=== PATIENT | male | born 1935 | race Caucasian/White ===

== ENCOUNTER 2016-11-06 18:07 | Emergency (ER) | payer MEDICARE, OTHER ==
--- NOTE | 2016-11-06 18:36 | ER Document Report ---
ED Medical Screen (RME) - General Stated Complaint: WEAKNESS Mode of Arrival: Ambulatory Information source: Patient Notes: Patient with fever that started today. Patient denies any obvious source of the fever. Patient did have an episode of confusion earlier this afternoon in which he thought he was seen watching people play football and the television was given on. hx; hypertension I have greeted and performed a rapid initial assessment of this patient. A comprehensive ED assessment and evaluation of the patient, analysis of test results and completion of the medical decision making process will be conducted by additional ED providers. TRAVEL OUTSIDE OF THE [place] IN LAST 30 DAYS: No - Related Data Allergies/Adverse Reactions: donepezil [From Aricept] Adverse Reaction (Severe, Verified 06/12/16 13:38) Bad nightmares Past Medical History - Past Medical History Cardiac Medical History: Reports: Hx Hypertension - hx of Denies: Hx Coronary Artery Disease, Hx Heart Attack Pulmonary Medical History: Denies: Hx Asthma, Hx Bronchitis, Hx COPD, Hx Pneumonia Neurological Medical History: Denies: Hx Cerebrovascular Accident, Hx Seizures GI Medical History: Denies: Hx Hepatitis, Hx Hiatal Hernia, Hx Ulcer Musculoskeltal Medical History: Reports Hx Arthritis - index finger Infectious Medical History: Denies: Hx Hepatitis Past Surgical History: Denies: Hx Open Heart Surgery, Hx Pacemaker - Immunizations Hx Diphtheria, Pertussis, Tetanus Vaccination: Yes Physical Exam - Vital signs Vitals: Temp Pulse Resp BP Pulse Ox 101.6 F H 98 20 133/90 H 95 11/06/16 18:21 11/06/16 18:21 11/06/16 18:21 11/06/16 18:21 11/06/16 18:21 - Neurological Neuro grossly intact: Yes [place] Coma Scale Eye Opening: Spontaneous Bhargav Coma Scale Verbal: Oriented [place] Coma Scale Motor: Obeys Commands [place] Coma Scale Total: 15 Course - Vital Signs Vital signs: Temp Pulse Resp BP Pulse Ox 101.6 F H 98 20 133/90 H 95 11/06/16 18:21 11/06/16 18:21 11/06/16 18:21 11/06/16 18:21 11/06/16 18:21
--- NOTE | 2016-11-06 20:09 | ER Document Report ---
ED Fever - General Chief Complaint: Fever Stated Complaint: WEAKNESS Time seen by provider: 20:00 Mode of Arrival: Ambulatory Notes: Patient is an 81-year-old male that comes emergency department for chief complaint of fever that started today, fever was 104, he took 1000 mg of Tylenol 1 hr prior to arrival. He states that when his fever started rising he had a slight headache and he felt slightly confused, denies any headache or confusion since, family members deny any confusion. Patient has not had any cough, sore throat, abdominal pain, dysuria, neck pain. Patient states he feels fine. Vision had the influenza vaccine this year. Past medical history of hypertension and "slightly weak kidneys". No smoking history and patient denies any surgeries. TRAVEL OUTSIDE OF THE [place] IN LAST 30 DAYS: No - Related Data Allergies/Adverse Reactions: donepezil [From Aricept] Adverse Reaction (Severe, Verified 11/06/16 18:38) Bad nightmares Past Medical History - General Information source: Patient - Social History Smoking Status: Never Smoker Chew tobacco use (# tins/day): No Frequency of alcohol use: None Drug Abuse: None Lives with: Family Family History: Reviewed & Not Pertinent Patient has suicidal ideation: No - Past Medical History Cardiac Medical History: Reports: Hx Hypertension - hx of Denies: Hx Coronary Artery Disease, Hx Heart Attack Pulmonary Medical History: Denies: Hx Asthma, Hx Bronchitis, Hx COPD, Hx Pneumonia Neurological Medical History: Denies: Hx Cerebrovascular Accident, Hx Seizures Renal/ Medical History: Denies: Hx Peritoneal Dialysis GI Medical History: Denies: Hx Hepatitis, Hx Hiatal Hernia, Hx Ulcer Musculoskeltal Medical History: Reports Hx Arthritis - index finger Infectious Medical History: Denies: Hx Hepatitis Surgical Hx: Negative Past Surgical History: Denies: Hx Open Heart Surgery, Hx Pacemaker - Immunizations Hx Diphtheria, Pertussis, Tetanus Vaccination: Yes Hx Pneumococcal Vaccination: 10/21/12 Review of Systems - Review of Systems Constitutional: See HPI EENT: No symptoms reported Cardiovascular: No symptoms reported Respiratory: No symptoms reported Gastrointestinal: No symptoms reported Genitourinary: No symptoms reported Male Genitourinary: No symptoms reported Musculoskeletal: No symptoms reported Skin: No symptoms reported Hematologic/Lymphatic: No symptoms reported Neurological/Psychological: No symptoms reported Physical Exam - Vital signs Vitals: Temp Pulse Resp BP Pulse Ox 101.6 F H 98 20 133/90 H 95 11/06/16 18:21 11/06/16 18:21 11/06/16 18:21 11/06/16 18:21 11/06/16 18:21 Interpretation: Normal - General General appearance: Appears well, Alert In distress: None - Patient sitting up on the bed, smiling, talkative - HEENT Head: Normocephalic, Atraumatic Eyes: Normal Conjunctiva: Normal Extraocular movements intact: Yes Eyelashes: Normal Pupils: PERRL Sinus: Normal Nasal: Normal Mouth/Lips: Normal Mucous membranes: Normal Pharynx: Normal Neck: Normal. No: Brudzinski, Meningismus - Respiratory Respiratory status: No respiratory distress. No: Tachypnea Chest status: Nontender Breath sounds: Normal. No: Decreased air movement, Nonproductive cough, Productive cough, Rales, Rhonchi, Stridor, Wheezing Chest palpation: Normal - Cardiovascular Rhythm: Regular. No: Tachycardia Heart sounds: Normal auscultation, S1 appreciated, S2 appreciated Murmur: No - Abdominal Inspection: Normal Distension: No distension Bowel sounds: Normal Tenderness: Nontender. No: Tender, Guarding Organomegaly: No organomegaly - Back Back: Normal, Nontender. No: Tender - Extremities General upper extremity: Normal inspection, Nontender, Normal ROM, Normal strength General lower extremity: Normal inspection, Nontender, Normal ROM, Normal strength - Neurological Neuro grossly intact: Yes Cognition: Normal Orientation: AAOx4 Bhargav Coma Scale Eye Opening: Spontaneous Bhargav Coma Scale Verbal: Oriented [place] Coma Scale Motor: Obeys Commands Bhargav Coma Scale Total: 15 Speech: Normal Motor strength normal: LUE, RUE, LLE, RLE Sensory: Normal - Psychological Associated symptoms: Normal affect, Normal mood - Skin Skin Temperature: Warm Skin Moisture: Dry Skin Color: Normal Course - Re-evaluation Re-evalutation: No leukocytosis or bandemia, no tachycardia, hypotension, on exam patient complains of no symptoms, no nuchal rigidity, no headache, soft abdomen on exam , no shortness of breath or cough, patient is actually very useful and well- appearing. Chemistry unremarkable, urinalysis and chest x-ray are unremarkable. Discussed with family and patient his results, patient is asking to leave now. Most likely viral in nature, patient will be covered because of his age with doxycycline, recommended follow-up closely with primary care, patient is to return immediately if he worsens in any way. Patient and family members state satisfaction and agreement with plan. - Vital Signs Vital signs: Temp Pulse Resp BP Pulse Ox 99.6 F 98 19 132/68 H 97 11/06/16 21:01 11/06/16 18:21 11/06/16 21:46 11/06/16 21:46 11/06/16 21:46 - Laboratory Result Diagrams: 11/06/16 20:15 11/06/16 20:15 Laboratory results interpreted by me: 11/06/16 11/06/16 11/06/16 20:15 20:15 20:30 Hgb 13.0 L MCHC 31.8 L RDW 14.4 H Seg Neutrophils % 85.7 H Lymphocytes % 8.1 L Est GFR (Non-Af Amer) 57 L Glucose 114 H ALT 20 L Urine Protein 100 H Urine Blood MODERATE H Discharge - Discharge Clinical Impression: Fever Qualifiers: Fever type: unspecified Qualified Code(s): R50.9 - Fever, unspecified Condition: Stable Disposition: HOME, SELF-CARE Additional Instructions: The chest x-ray does not show pneumonia, the laboratory workup is nonspecific. Physical examination vital signs are good. Fever is most likely secondary to virus, we are covering you with doxycycline antibiotic. Take Tylenol for fever (650-1000 mg every 4-6 hours as needed), rest, drink plenty of fluids. Follow-up with primary care next 2 days. Return immediately to the emergency department for any concerning or worsening symptoms including abdominal pain, headache, shortness of breath, or any other concerning symptoms. Prescriptions: Doxycycline Hyclate 100 mg PO BID #14 capsule
[2016-11-06 20:45] LABS: ABSOLUTE BASOPHILS # (AUTO) 0.1 10^3/uL (0.0-0.2); ABSOLUTE LYMPHOCYTES (AUTO) 0.7 10^3/uL (0.5-4.7); ABSOLUTE MONOCYTES (AUTO) 0.5 10^3/uL (0.1-1.4); ABSOLUTE NEUT (AUTO) 7.8 10^3/uL (1.7-8.2); BASOPHILS % (AUTO) 0.7 % (0-2); EOSINOPHILS % (AUTO) 0.3 % (0-6); HEMATOCRIT 40.9 % (37.9-51.0); HGB HCT DIFFERENCE -1.9; LYMPHOCYTES % (AUTO) 8.1 % (13-45); MEAN CORPUSCULAR HEMOGLOBIN 27.6 pg (27.0-33.4); MEAN CORPUSCULAR HGB CONC 31.8 g/dL (32.0-36.0); MEAN CORPUSCULAR VOLUME 87 fl (80-97); MONOCYTES % (AUTO) 5.2 % (3-13); RED BLOOD COUNT 4.71 10^6/uL (4.35-5.55); RED CELL DISTRIBUTION WIDTH 14.4 % (11.5-14.0); SEGMENTED NEUTROPHILS % (AUTO) 85.7 % (42-78); WHITE BLOOD COUNT 9.1 10^3/uL (4.0-10.5)
[2016-11-06 20:57] LABS: APPEARANCE,URINE SLIGHTLY-CLOUDY; BILIRUBIN,URINE NEGATIVE (NEGATIVE); GLUCOSE, URINE NEGATIVE (NEGATIVE); KETONES,URINE NEGATIVE (NEGATIVE); LEUKOCYTE ESTERASE,URINE NEGATIVE (NEGATIVE); NITRITE,URINE NEGATIVE (NEGATIVE); PROTEIN,URINE 100 mg/dL (NEGATIVE); URINE SPECIFIC GRAVITY 1.021; UROBILINOGEN,URINE NEGATIVE mg/dL (<2.0)
[2016-11-06 21:02] LABS: ALANINE AMINOTRANSFERASE 20 U/L (21-72); ALBUMIN 3.9 g/dL (3.5-5.0); ALKALINE PHOSPHATASE 79 U/L (38-126); ANION GAP 14 (5-19); ASPARTATE AMINO TRANSFERASE 22 U/L (17-59); BILIRUBIN,TOTAL 0.6 mg/dL (0.2-1.3); BLOOD UREA NITROGEN 16 mg/dL (7-20); CARBON DIOXIDE 23 mmol/L (22-30); CHLORIDE 101 mmol/L (98-107); CREATININE RESULT 1.23 mg/dL (0.52-1.25); GLUCOSE 114 mg/dL (75-110); POTASSIUM 3.8 mmol/L (3.6-5.0); SODIUM 138.1 mmol/L (137-145); TOTAL PROTEIN 6.8 g/dL (6.3-8.2)
[2016-11-06] MEDS ORDERED: DOXYCYCLINE HYCLATE 100 MG TABLET PO ONE (21:22)
[2016-11-06 21:51] VITALS: BP 132/68
--- NOTE | 2016-11-07 08:18 | EKG REPORT ---
SEVERITY:- ABNORMAL ECG - SINUS RHYTHM CONSIDER LEFT VENTRICULAR HYPERTROPHY : Confirmed by: Juan So MD 07-Nov-2016 08:17:36
== END 2016-11-06 21:54 | disposition home or self-care (01) ==
LOC: ER 18:07
DX: R50.9 Fever, unspecified (principal); R53.1 Weakness; R51 Headache
CPT/HCPCS: 93005; 99284; 36415; 87086; 85025; 85610; 80053; 81001; 83605; 71020; 93010; A9270

== ENCOUNTER 2016-12-24 12:49 | Emergency (ER) | payer MEDICARE, OTHER ==
--- NOTE | 2016-12-24 13:15 | ER Document Report ---
ED Medical Screen (RME) - General Stated Complaint: RIGHT ARM PAIN, NUMBNESS Time seen by provider: 13:10 Mode of Arrival: Ambulatory Information source: Patient Notes: 81 yo male planing of five-minute episodes of tingling in his right index finger and weakness of he hand that radiates up to the right elbow for several days. He also started having dizzy spells today. No chest pain or shortness of breath. Non smoker, no history of stroke or CAD. Mild dementia. I have greeted and performed a rapid initial assessment of this patient. A comprehensive ED assessment, evaluation of the patient, analysis of test results , and completion of the medical decision making process will be conducted by additional ED providers. TRAVEL OUTSIDE OF THE [place] IN LAST 30 DAYS: No - Related Data Allergies/Adverse Reactions: donepezil [From Aricept] Adverse Reaction (Severe, Verified 11/06/16 18:38) Bad nightmares Past Medical History - Past Medical History Cardiac Medical History: Reports: Hx Hypertension - hx of Denies: Hx Coronary Artery Disease, Hx Heart Attack Pulmonary Medical History: Denies: Hx Asthma, Hx Bronchitis, Hx COPD, Hx Pneumonia Neurological Medical History: Denies: Hx Cerebrovascular Accident, Hx Seizures Renal/ Medical History: Denies: Hx Peritoneal Dialysis GI Medical History: Denies: Hx Hepatitis, Hx Hiatal Hernia, Hx Ulcer Musculoskeltal Medical History: Reports Hx Arthritis - index finger Infectious Medical History: Denies: Hx Hepatitis Past Surgical History: Denies: Hx Open Heart Surgery, Hx Pacemaker - Immunizations Hx Diphtheria, Pertussis, Tetanus Vaccination: Yes Physical Exam - Vital signs Vitals: Temp Pulse Resp BP Pulse Ox 98.2 F 83 20 174/71 H 97 12/24/16 13:05 12/24/16 13:05 12/24/16 13:05 12/24/16 13:05 12/24/16 13:05 Course - Vital Signs Vital signs: Temp Pulse Resp BP Pulse Ox 98.2 F 83 20 174/71 H 97 12/24/16 13:05 12/24/16 13:05 12/24/16 13:05 12/24/16 13:05 12/24/16 13:05
[2016-12-24 14:18] LABS: PROTHROMBIN TIME 13.1 SEC (11.4-15.4)
[2016-12-24 14:23] LABS: ABSOLUTE BASOPHILS # (AUTO) 0.1 10^3/uL (0.0-0.2); ABSOLUTE EOSINOPHILS # (AUTO) 0.2 10^3/uL (0.0-0.6); ABSOLUTE LYMPHOCYTES (AUTO) 1.4 10^3/uL (0.5-4.7); ABSOLUTE MONOCYTES (AUTO) 0.7 10^3/uL (0.1-1.4); BASOPHILS % (AUTO) 1.1 % (0-2); EOSINOPHILS % (AUTO) 3.8 % (0-6); HEMATOCRIT 39.3 % (37.9-51.0); HEMOGLOBIN 13.5 g/dL (13.5-17.0); HGB HCT DIFFERENCE 1.2; LYMPHOCYTES % (AUTO) 22.1 % (13-45); MEAN CORPUSCULAR HEMOGLOBIN 28.6 pg (27.0-33.4); MEAN CORPUSCULAR HGB CONC 34.4 g/dL (32.0-36.0); MEAN CORPUSCULAR VOLUME 83 fl (80-97); MONOCYTES % (AUTO) 10.4 % (3-13); RED BLOOD COUNT 4.73 10^6/uL (4.35-5.55); RED CELL DISTRIBUTION WIDTH 14.2 % (11.5-14.0); SEGMENTED NEUTROPHILS % (AUTO) 62.6 % (42-78); WHITE BLOOD COUNT 6.4 10^3/uL (4.0-10.5)
[2016-12-24 14:44] LABS: ALANINE AMINOTRANSFERASE 25 U/L (21-72); ALBUMIN 4.1 g/dL (3.5-5.0); ALKALINE PHOSPHATASE 74 U/L (38-126); ANION GAP 13 (5-19); ASPARTATE AMINO TRANSFERASE 20 U/L (17-59); BILIRUBIN,TOTAL 0.4 mg/dL (0.2-1.3); BLOOD UREA NITROGEN 13 mg/dL (7-20); CALCIUM 9.5 mg/dL (8.4-10.2); CARBON DIOXIDE 25 mmol/L (22-30); CHLORIDE 100 mmol/L (98-107); CREATINE KINASE 115 U/L (55-170); CREATININE RESULT 1.05 mg/dL (0.52-1.25); GLUCOSE 104 mg/dL (75-110); POTASSIUM 4.5 mmol/L (3.6-5.0); SODIUM 137.5 mmol/L (137-145); TOTAL PROTEIN 7.1 g/dL (6.3-8.2)
[2016-12-24 14:55] LABS: CREATINE KINASE MB 0.87 ng/mL (<4.55)
[2016-12-24 14:56] LABS: TROPONIN I < 0.012 ng/mL
--- NOTE | 2016-12-24 15:57 | ER Document Report ---
ED General - General Chief Complaint: Arm Pain Stated Complaint: RIGHT ARM PAIN, NUMBNESS Mode of Arrival: Ambulatory Information source: Patient Notes: 81-year-old male history of hypertension presents with complaints of headache of 3 day duration with intermittent episodes of weakness numbness of the right hand. Patient notes he was unable to grasp to touch his nose with his hand. Symptoms were soft intermittently but did occur 3 times while in the waiting room TRAVEL OUTSIDE OF THE [place] IN LAST 30 DAYS: No - HPI Onset: Just prior to arrival Onset/Duration: Intermittent Quality of pain: No pain Severity: Moderate Pain Level: Denies Associated symptoms: Weakness Exacerbated by: Denies Relieved by: Denies Similar symptoms previously: No Recently seen / treated by doctor: No - Related Data Allergies/Adverse Reactions: donepezil [From Aricept] Adverse Reaction (Severe, Verified 12/24/16 13:14) Bad nightmares Past Medical History - General Information source: Patient - Social History Smoking Status: Former Smoker Cigarette use (# per day): No Chew tobacco use (# tins/day): No Smoking Education Provided: No Frequency of alcohol use: None Drug Abuse: None Family History: Reviewed & Not Pertinent Patient has suicidal ideation: No Patient has homicidal ideation: No - Past Medical History Cardiac Medical History: Reports: Hx Hypertension - hx of Denies: Hx Coronary Artery Disease, Hx Heart Attack Pulmonary Medical History: Denies: Hx Asthma, Hx Bronchitis, Hx COPD, Hx Pneumonia Neurological Medical History: Denies: Hx Cerebrovascular Accident, Hx Seizures Renal/ Medical History: Denies: Hx Peritoneal Dialysis GI Medical History: Denies: Hx Hepatitis, Hx Hiatal Hernia, Hx Ulcer Musculoskeltal Medical History: Reports Hx Arthritis - index finger Infectious Medical History: Denies: Hx Hepatitis Past Surgical History: Denies: Hx Open Heart Surgery, Hx Pacemaker - Immunizations Hx Diphtheria, Pertussis, Tetanus Vaccination: Yes Hx Pneumococcal Vaccination: 10/21/12 Review of Systems - Review of Systems Notes: REVIEW OF SYSTEMS: CONSTITUTIONAL : Denies fever, chills, or sweats. Denies recent illness. EENT: Denies eye, ear, throat, or mouth pain or symptoms. Denies nasal or sinus congestion or discharge. Denies throat, tongue, or mouth swelling or difficulty swallowing. CARDIOVASCULAR: Denies chest pain. Denies palpitations or racing or irregular heart beat. Denies ankle edema. RESPIRATORY: Denies cough, cold, or chest congestion. Denies shortness of breath, difficulty breathing, or wheezing. GASTROINTESTINAL: Denies abdominal pain or distention. Denies nausea, vomiting , or diarrhea. Denies blood in vomitus, stools, or per rectum. Denies black, tarry stools. Denies constipation. GENITOURINARY: Denies difficulty urinating, painful urination, burning, frequency, blood in urine, or discharge. MUSCULOSKELETAL: Denies back or neck pain or stiffness. Denies joint pain or swelling. SKIN: Denies rash, lesions or sores. HEMATOLOGIC : Denies easy bruising or bleeding. LYMPHATIC: Denies swollen, enlarged glands. NEUROLOGICAL: Intermittent episodes of weakness of the right arm PSYCHIATRIC: Denies anxiety or stress. Denies depression, suicidal ideation, or homicidal ideation. ALL OTHER SYSTEMS REVIEWED AND NEGATIVE. Dictation was performed using [employer] voice recognition software PHYSICAL EXAMINATION: GENERAL: Well-appearing, well-nourished and in no acute distress. HEAD: Atraumatic, normocephalic. EYES: Pupils equal round and reactive to light, extraocular movements intact, sclera anicteric, conjunctiva are normal. ENT: Nares patent, oropharynx clear without exudates. Moist mucous membranes. NECK: Normal range of motion, supple without lymphadenopathy LUNGS: Breath sounds clear to auscultation bilaterally and equal. No wheezes rales or rhonchi. HEART: Regular rate and rhythm without murmurs ABDOMEN: Soft, nontender, nondistended abdomen. No guarding, no rebound. No masses appreciated. Musculoskeletal: Normal range of motion, no pitting or edema. No cyanosis. NEUROLOGICAL: Cranial nerves grossly intact. Normal speech, normal gait. Normal sensory, motor exams PSYCH: Normal mood, normal affect. SKIN: Warm, Dry, normal turgor, no rashes or lesions noted. NIH score is 0 Physical Exam - Vital signs Vitals: Temp Pulse Resp BP Pulse Ox 98.2 F 83 20 174/71 H 97 12/24/16 13:05 12/24/16 13:05 12/24/16 13:05 12/24/16 13:05 12/24/16 13:05 Course - Re-evaluation Re-evalutation: 12/24/16 15:52 I evaluated patient immediately when he came to the room, given his right arm weakness numbness I immediately evalauted the ct, concerning for small mca bleed 12/24/16 15:57 12/24/16 19:19 Patient is not a candidate given that there is a hemorrhagic stroke Patient has been accepted by Dr. Avery Plan is to keep blood pressure in the 160s range 12/24/16 19:24 Patient's blood pressure is again noted to be elevated, labetalol has been ordered 12/24/16 19:24 - Vital Signs Vital signs: Temp Pulse Resp BP Pulse Ox 98.6 F 73 18 192/77 H 95 12/24/16 16:21 12/24/16 16:21 12/24/16 16:21 12/24/16 16:21 12/24/16 16:21 - Laboratory Result Diagrams: 12/24/16 13:20 12/24/16 13:20 Laboratory results interpreted by me: 12/24/16 13:20 RDW 14.2 H - Diagnostic Test Radiology reviewed: Image reviewed, Reports reviewed - Consults [facility] Time consulted: 15:58 Reason for consultation: 12/24/16 15:58 transfer Critical Care Note - Critical Care Note Total time excluding time spent on procedures (mins): 31 Comments: 31 minutes of critical care time spent in direct contact evaluating and reevaluating the patient, treating symptoms, reviewing labs and studies and speaking with family and consultants excluding any procedures Discharge - Discharge Clinical Impression: Hypertensive emergency, hemorrhagic MCA infarct Condition: Stable Disposition: [facility]
[2016-12-24] MEDS ORDERED: HYDRALAZINE HCL INJ/PF 20 MG/1 ML SDV IV ONE (16:55)
[2016-12-24] MEDS ORDERED: HYDRALAZINE HCL INJ/PF 20 MG/1 ML SDV ONE (16:58)
[2016-12-24] MEDS ORDERED: LABETALOL HCL INJ 20 MG/4 ML DISP.SYRIN IV ONE ×2 (19:19→19:21)
--- NOTE | 2016-12-24 20:48 | EKG REPORT ---
SEVERITY:- BORDERLINE ECG - SINUS RHYTHM CONSIDER ANTERIOR INFARCT VS LVH RELATED LVH : Confirmed by: Danilo Tang 24-Dec-2016 20:48:32
[2016-12-24 21:06] VITALS: BP 149/79
== END 2016-12-24 21:29 | disposition short-term general hospital (02) ==
LOC: ER 12:49
DX: I61.8 Other nontraumatic intracerebral hemorrhage (principal); G81.91 Hemiplegia, unspecified affecting right dominant side; R42 Dizziness and giddiness; M79.601 Pain in right arm; R20.0 Anesthesia of skin; I10 Essential (primary) hypertension; Z87.891 Personal history of nicotine dependence
CPT/HCPCS: 93005; 99291; 96374; 96375; 36415; 82553; 82550; 85025; 85610; 85730; 80053; 84484; 71010; 70450; 93010; J0360; J3490

== ENCOUNTER 2018-09-16 10:19 | Emergency (ER) | payer MEDICARE, OTHER ==
--- NOTE | 2018-09-16 11:26 | ER Document Report ---
ED General - General Chief Complaint: Laceration Stated Complaint: FALL Time Seen by Provider: 09/16/18 11:07 Notes: Patient is a 83 year old male with history of CVA on plavix that presents to the emergency department for chief complaint of fall with head injury. Patient reports that he tripped on a rope on his deck and fell forward and hit his head on the deck, he denies losing consciousness, currently he is complaining of a mild headache that he rates as a 2/10 at this time, described as a dull ache. He denies having any nausea, vomiting, visual changes, numbness, tingling, or weakness in any of his extremities. He is complaining of some pain in his left bicep as well, but denies any any pain with ROM of the arm. He noted some scraps on his hands as he tried to catch himself, and a cut across the bridge of his nose. He has been able to walk since his fall and denies hip pain. No other complaints at this time. He reports being up to date with tetanus vaccination. Past Medical History: htn, CVA, hld Past Surgical History: denies any pertinent or recent surgeries Social History: Denies tobacco, alcohol, or illicit drug use. Family History: Reviewed and noncontributory for presenting illness Allergies: Reviewed, see documented allergy list. REVIEW OF SYSTEMS: Other than noted above, the 12 point review of systems was reviewed with the patient and were negative, all pertinent findings are included in the HPI. PHYSICAL EXAMINATION: Vital signs reviewed, nursing noted reviewed. GENERAL: Elderly male, no acute distress HEAD: 2cm Laceration to the left eyebrow and abrasion to the nasal bridge, normocephalic. EYES: Eyes appear normal, extraocular movements intact, sclera anicteric, conjunctiva are normal. PERRLA. ENT: nares patent, oropharynx clear without exudates. Moist mucous membranes. No blood noted in the nares, no tenderness with palpation of the nasal bridge. NECK: Normal range of motion, supple without lymphadenopathy LUNGS: Breath sounds clear to auscultation bilaterally and equal. No wheezes rales or rhonchi. HEART: Heart rate bradycardic and regular rhythm. ABDOMEN: Soft, nontender, normoactive bowel sounds. No rebound, guarding, or rigidity. No masses appreciated. EXTREMITIES: Mild tenderness of the right distal bicep without evidence of rupture or weakness. No gross deformities, good range of motion, no pitting or edema. Minor superficial abrasions noted to the palms bilaterally. NEUROLOGICAL: No focal neurological deficits. Moves all extremities spontaneously Motor and sensory grossly intact on exam. PSYCH: Normal mood, normal affect. SKIN: Warm, Dry, normal turgor. TRAVEL OUTSIDE OF THE [place] IN LAST 30 DAYS: No - Related Data Allergies/Adverse Reactions: donepezil [From Aricept] Adverse Reaction (Severe, Verified 12/24/16 13:14) Bad nightmares Past Medical History - Social History Smoking Status: Never Smoker Family History: Reviewed & Not Pertinent - Past Medical History Cardiac Medical History: Reports: Hx Hypertension - hx of Denies: Hx Coronary Artery Disease, Hx Heart Attack Pulmonary Medical History: Denies: Hx Asthma, Hx Bronchitis, Hx COPD, Hx Pneumonia Neurological Medical History: Denies: Hx Cerebrovascular Accident, Hx Seizures Renal/ Medical History: Denies: Hx Peritoneal Dialysis GI Medical History: Denies: Hx Hepatitis, Hx Hiatal Hernia, Hx Ulcer Musculoskeletal Medical History: Reports Hx Arthritis - index finger Infectious Medical History: Denies: Hx Hepatitis Past Surgical History: Denies: Hx Open Heart Surgery, Hx Pacemaker - Immunizations Hx Diphtheria, Pertussis, Tetanus Vaccination: Yes Hx Pneumococcal Vaccination: 10/21/12 Physical Exam - Vital signs Vitals: Temp Pulse Resp BP Pulse Ox 97.4 F 52 L 16 151/62 H 98 09/16/18 10:25 09/16/18 10:25 09/16/18 10:25 09/16/18 10:25 09/16/18 10:25 Course - Re-evaluation Re-evalutation: Patient seen and examined vital signs reviewed. Patient was evaluated and treated as appropriate for the patient's presenting symptoms and complaint, with consideration of any critical or life threatening conditions that may be associated with their obtained history and exam as noted above. Patient was treated with tylenol for pain, and laceration repaired as described , patient tolerated well. CT of the head and cervical spine were negative for any acute injury. The patient was re-evaluated and was stable and improved. Evaluation was most consistent with closed head injury, facial laceration, fall. Patient advised to follow-up in 5-6 days for wound check and given a prescription for keflex due to nasal fracture, for 5 days. Plan of care was discussed with the patient at this point, after careful consideration I feel that that patient can be discharged from the emergency department, the patient was educated treatments and reasons to return to the emergency department based on their presumed diagnosis as noted above, they were advised to followup with a primary care physician in 2-3 days. Patient was agreeable to plan of care. *Note is created using voice recognition software and may contain spelling, syntax or grammatical errors. Cervical Spine CT 09/16/18 11:26 IMPRESSION: CHRONIC DEGENERATIVE CHANGES. NO ACUTE FINDINGS. Head CT 09/16/18 11:26 IMPRESSION: Left frontal scalp swelling without underlying skull fracture or acute intracranial hemorrhage Question nondisplaced nasal bone fractures EVIDENCE OF ACUTE STROKE: NO. - Vital Signs Vital signs: Temp Pulse Resp BP Pulse Ox 98.2 F 87 18 148/69 H 98 09/16/18 13:21 09/16/18 13:21 09/16/18 13:21 09/16/18 13:21 09/16/18 10:25 Procedures - Laceration/Wound Repair Left Face Wound length (cm): 2 Wound's Depth, Shape: Stellate, Other - Into subcutaneous tissues. Laceration pre-procedure: Sterile PPE donned, Chloraprep applied Anesthetic type: 1% Lidocaine w/epi Volume Anesthetic (mLs): 2 Wound explored: Clean, No foreign body removed Wound Repaired With: Sutures Suture Size/Type: 5:0, Prolene Number of Sutures: 5 Layer Closure?: No Complications: No Notes: Patient tolerated well, no complications, good approximation, bacitracin applied. Xeroform applied to nasal abrasion. Discharge - Discharge Clinical Impression: Closed head injury Qualifiers: Encounter type: initial encounter Qualified Code(s): S09.90XA - Unspecified injury of head, initial encounter Facial laceration Qualifiers: Encounter type: initial encounter Qualified Code(s): S01.81XA - Laceration without foreign body of other part of head, initial encounter Fall Qualifiers: Encounter type: initial encounter Qualified Code(s): W19.XXXA - Unspecified fall, initial encounter Nasal fracture Qualifiers: Encounter type: initial encounter Fracture type: closed Qualified Code(s): S02.2XXA - Fracture of nasal bones, initial encounter for closed fracture Condition: Stable Disposition: HOME, SELF-CARE Instructions: Laceration Care ([facility]) Additional Instructions: Please follow-up in 5-6 days, to have your wound inspected, and sutures removed. Please monitor for signs of infection such as redness, or pus drainage , this would be an indication to return to the emergency department sooner. Prescriptions: Cephalexin Monohydrate [Keflex 500 mg Capsule] 500 mg PO TID #15 capsule Referrals: MIKEY RAMOS MD [ACTIVE STAFF] - Follow up as needed (or your primary care. )
[2018-09-16] MEDS ORDERED: LIDOCAINE 1%/EPINEPHRINE INJ 20 ML VIAL INJ ONE (11:27)
[2018-09-16] MEDS ORDERED: ACETAMINOPHEN 325 MG TABLET PO ONE (12:00)
--- NOTE | 2018-09-16 12:28 | RADIOLOGY REPORT (SQ) ---
EXAM DESCRIPTION: CT HEAD WITHOUT COMPLETED DATE/TIME: 09/16/2018 11:52 am REASON FOR STUDY: fall, head injury, on plavix COMPARISON: CT brain 12/24/2016 TECHNIQUE: Axial images acquired through the brain without intravenous contrast. Images reviewed wi th bone, brain and subdural windows. Additional sagittal and coronal reconstructions were generated. Images stored on PACS. All CT scanners at this facility use dose modulation, iterative reconstruction, and/or weight based d osing when appropriate to reduce radiation dose to as low as reasonably achievable (ALARA). [facility]: Dose Right [facility]: CareDose [facility]: Dose Right [facility]: Teradose 4D [facility]: [email or web address] RADIATION DOSE: CT Rad equipment meets quality standard of care and radiation dose reduction techniq ues were employed. CTDIvol: 53.2 mGy. DLP: 1044 mGy-cm. mGy. LIMITATIONS: None. FINDINGS: VENTRICLES: Normal size and contour. CEREBRUM: No masses. No hemorrhage. No midline shift. No evidence for acute infarction. Normal gra y/white matter differentiation. No areas of low density in the white matter. CEREBELLUM: No masses. No hemorrhage. No alteration of density. No evidence for acute infarction. EXTRAAXIAL SPACES: No fluid collections. No masses. ORBITS AND GLOBE: No intra- or extraconal masses. Bilateral cataract surgery. CALVARIUM: No fracture. PARANASAL SINUSES: No fluid or mucosal thickening. SOFT TISSUES: Left frontal scalp swelling without underlying skull fracture or acute intracranial hem orrhage OTHER: Question nondisplaced nasal bone fractures IMPRESSION: Left frontal scalp swelling without underlying skull fracture or acute intracranial hemo rrhage Question nondisplaced nasal bone fractures EVIDENCE OF ACUTE STROKE: NO. COMMENT: Quality ID # [id number]: Final reports with documentation of one or more dose reduction techniques (e.g., Automated exposure control, adjustment of the mA and/or kV according to patient size, use of iterative reconstruction technique) TECHNICAL DOCUMENTATION: JOB ID: [id number] [employer]- All Rights Reserved Reading location - IP/workstation name: [email or web address]
--- NOTE | 2018-09-16 12:32 | RADIOLOGY REPORT (SQ) ---
EXAM DESCRIPTION: CT CERVICAL SPINE WITHOUT COMPLETED DATE/TIME: 09/16/2018 11:52 am REASON FOR STUDY: fall, head injury neck pain COMPARISON: CT brain same date TECHNIQUE: Axial images acquired through the cervical spine without intravenous contrast. Images re viewed with lung, soft tissue and bone windows. Reconstructed coronal and sagittal MPR images review ed. Images stored on PACS. All CT scanners at this facility use dose modulation, iterative reconstruction, and/or weight based d osing when appropriate to reduce radiation dose to as low as reasonably achievable (ALARA). [facility]: Dose Right [facility]: CareDose [facility]: Dose Right [facility]: Teradose 4D [facility]: 8aweek RADIATION DOSE: CT Rad equipment meets quality standard of care and radiation dose reduction techniq ues were employed. CTDIvol: 19.6 mGy. DLP: 385 mGy-cm. mGy. LIMITATIONS: None. FINDINGS: ALIGNMENT: Minimal anterolisthesis of C4 over C5, fixed flexion at C5-6 related to advance d facet arthropathy and degenerative disc changes MINERALIZATION: Normal. VERTEBRAL BODIES: No fractures or dislocation. DISCS: Multilevel disc space narrowing with osteophytes. FACETS, LATERAL MASSES, POSTERIOR ELEMENTS: Facet arthropathy. No fractures. No dislocation. No ac tor findings. HARDWARE: None in the spine. VISUALIZED RIBS: No fractures. LUNG APICES AND SOFT TISSUES: No significant or acute findings. OTHER: No other significant finding. IMPRESSION: CHRONIC DEGENERATIVE CHANGES. NO ACUTE FINDINGS. TECHNICAL DOCUMENTATION: JOB ID: [id number] Quality ID # [id number]: Final reports with documentation of one or more dose reduction techniques (e.g., Au tomated exposure control, adjustment of the mA and/or kV according to patient size, use of iterative reconstruction technique) 2010 [employer]- All Rights Reserved Reading location - IP/workstation name: [email or web address]
[2018-09-16 13:24] VITALS: BP 148/69
== END 2018-09-16 13:21 | disposition home or self-care (01) ==
LOC: ER 10:19
DX: S02.2XXA Fracture of nasal bones, initial encounter for closed fracture (principal); S01.81XA Laceration without foreign body of other part of head, initial encounter; W01.0XXA Fall on same level from slipping, tripping and stumbling without subsequent striking against object, initial encounter; Y92.008 Other place in unspecified non-institutional (private) residence as the place of occurrence of the external cause; R51 Headache; I10 Essential (primary) hypertension; Z86.73 Personal history of transient ischemic attack (TIA), and cerebral infarction without residual deficits
CPT/HCPCS: 99283; 70450; 72125; 12011; A9270; J3490